=== PATIENT | female | born 1990 | race Caucasian/White ===

== ENCOUNTER 2020-07-20 19:29 | Emergency (ER) | payer OTHER, SELFPAY ==
--- NOTE | ~2020-07-20 | XR_ITS ---
EXAMINATION: XR HAND, LEFT CLINICAL INFORMATION: Pain status post injury COMPARISON: None TECHNIQUE: PA, lateral, and oblique views of the left hand. FINDINGS: No fracture or dislocation. Alignment is anatomic. Joint spaces are maintained. The soft tissues are unremarkable. No radiopaque foreign body. XR/XR hand LT min 3V IMPRESSION: No fracture or malalignment.
[2020-07-20 22:01] VITALS: BP 117/71; PULSE 75; RESP 16; TEMP 36.9; O2SAT 97; BMI 30.1
--- NOTE | 2020-07-20 22:10 | ED_ITS ---
HPI - Extremity Problem General Chief complaint: Extremity Injury, Upper Stated complaint: Finger Injury Source: patient Mode of arrival: ambulatory Limitations: no limitations History of Present Illness HPI Narrative: 30-year-old female with no significant past medical history presents with a crush injury to the left thumb. She accidentally struck the car door on her left thumb, has an abrasion and some bruising. She does not describe any other concerns, is able to move the thumb but has pain. MD Complaint: extremity pain and extremity swelling Onset (ago): hour(s) (Within the hour of arrival) Pain Consistency: constant Location: left Severity scale (1-10): 8 Quality: aching Relieving factors: nothing Exacerbating factors: range of motion and palpation Associated symptoms: denies other symptoms Related Data Allergies Allergy/AdvReac Type Severity Reaction Status Date / Time No Known Allergies Allergy Verified 07/20/20 22:08 Review of Systems Review of Systems: Constitutional: No Fever, No Chills ENT/Mouth: No Ear Pain, No Hoarseness, No sore throat Eyes: No Eye Pain, No Swelling, No Redness, No Foreign Body Cardiovascular: No Chest Pain, No SOB Respiratory: No Cough, No Dyspnea Gastrointestinal: No Nausea, No Vomiting, No Diarrhea, No abdominal Pain Genitourinary: No Dysuria, No Hematuria Musculoskeletal: positive left thumb pain and swelling, No Myalgias, No Joint Swelling Skin: Positive abrasion to the left thumb, No Skin lacerations, No rash Neuro: No Weakness, No Numbness, No Paresthesias, No Loss of Consciousness, No Dizziness, No Headache Psych: No Anxiety/Panic, No Depression Heme/Lymph: no easy bruising, no Lymphadenopathy Endocrine: No Polyuria, No Polydipsia Yes all other systems are reviewed and are negative [facility] Past Medical History Attestation statement: The following information was validated with the patient. Source: old records reviewed Medical History (Updated 07/20/20 @ 23:04 by Ann Cortes NP) No known health problems Social History Social History Advance Directives: No Advance Directives Information Provided: Yes Physical Exam Vital Signs: Vital Signs: Last Vital Signs Temp 98.4 F 07/20/20 22:01 Pulse 75 07/20/20 22:01 Resp 16 07/20/20 22:01 BP 117/71 07/20/20 22:01 Pulse Ox 97 07/20/20 22:01 Body Mass Index 30.1 Appearance: Alert. Oriented X3. No acute distress. Eyes: Pupils equal, round and reactive to light. ENT: Pharynx normal. Neck: Normal inspection. Neck supple. CVS: Normal heart rate and rhythm. Pulses normal. Respiratory: No respiratory distress. Breath sounds normal. Abdomen: Soft and nontender. Skin: Skin warm and dry. Normal skin color. Normal skin turgor. Extremities: Tenderness and bruising noted to the left PIP of the left thumb, no snuffbox tenderness, bruising noted to the PIP and thenar process, no snuffbox tenderness, no tenderness to the radial and ulnar processes. Full range of motion, no tendon deficit noted. No neurological or sensory deficit. No lower extremity edema. Neuro: No motor deficit. No sensory deficit. Course Course Course Narrative: 30-year-old female presents with a crush injury to the left thumb. X-rays are negative for acute findings, patient does have full range of motion although painful, strength 5/5, no significant indication of tendon injury. Superficial abrasion to the lateral aspect of the PIP, irrigated with normal saline, Tdap updated today. Patient advised to rest, ice, elevate, use Tylenol and Motrin if pain persists she should follow up with Orthopedics, referral given. Patient verbalized understanding of and agrees to plan of care discharge home. MDM - Extremity (Nontraumatic) MDM Narrative Medical decision making narrative: Fracture, dislocation, laceration, abrasion, Medical Records Attestation: I reviewed the patient's medical records. Imaging Data Left thumb x-ray: Attestation: I personally reviewed and interpreted this imaging study as follows: Radiologist's impression: EXAMINATION: XR HAND, LEFT CLINICAL INFORMATION: Pain status post injury COMPARISON: None TECHNIQUE: PA, lateral, and oblique views of the left hand. FINDINGS: No fracture or dislocation. Alignment is anatomic. Joint spaces are maintained. The soft tissues are unremarkable. No radiopaque foreign body. XR/XR hand LT min 3V IMPRESSION: No fracture or malalignment. Discharge Plan Discharge Clinical Impression: Finger sprain Qualifiers: Encounter type: initial encounter Finger: thumb Sprain of finger site: unspecified site Laterality: left Qualified Code(s): S63.602A - Unspecified sprain of left thumb, initial encounter Patient Disposition: Home, Self-Care Instructions: Finger Sprain (ED), Crush Injury (ED) Additional Instructions: You were evaluated for a crush injury to the left thumb. X-rays are negative for acute findings or fracture. Please use ice and elevation to help reduce swelling. Use Tylenol and Motrin as needed for pain management. You may consider following up with Orthopedics if pain persists. Please call and request an appointment. Describe your injury to orthopedics if you decide to call and request an appointment. We updated your Tdap vaccine today. Thank you for choosing this emergency department for evaluation. Please follow-up with primary care physician as needed. Return to the emergency department for any new, concerning, or worsening symptoms. Referrals: Kayla Orozco PA-C [[facility]] - 2 days (Left thumb crush injury) Stand Alone Forms: Work/School Release
== END 2020-07-20 23:15 | disposition home or self-care (01) ==
PROVIDERS: Emergency Provider Internal Medicine
DX: S63.602A Unspecified sprain of left thumb, initial encounter (principal); S60.312A Abrasion of left thumb, initial encounter; M79.645 Pain in left finger(s); Y29.XXXA Contact with blunt object, undetermined intent, initial encounter; Y93.9 Activity, unspecified; Y92.810 Car as the place of occurrence of the external cause; Y99.9 Unspecified external cause status; Z23 Encounter for immunization
CPT/HCPCS: 73130; 90471; 90715; 99284